=== PATIENT | female | born 1975 | race Two or more races ===

== ENCOUNTER 2018-02-19 19:03 | Emergency (ER) | payer MEDICAID, OTHER ==
[~2018-02-19] VITALS: Ht 154.9 cm; Wt 62.4 kg
[2018-02-19 19:06] VITALS: BP 140/75
[2018-02-19] MEDS ORDERED: PRENATAL VITAMINS (19:11)
[2018-02-19] MEDS ORDERED: CYCLOBENZAPRINE 10 MG TABLET ONE (19:45)
[2018-02-19] MEDS ORDERED: ACETAMINOPHEN 500 MG TABLET ONE (19:45)
[2018-02-19] MEDS ORDERED: ACETAMINOPHEN 500 MG TABLET PO ONE (20:00)
[2018-02-19] MEDS ORDERED: CYCLOBENZAPRINE 10 MG TABLET PO ONE (20:00)
== END 2018-02-19 20:23 | disposition home or self-care (01) ==
LOC: ED 20:00
DX: O26.892 Other specified pregnancy related conditions, second trimester (principal); Z3A.16 16 weeks gestation of pregnancy; S29.012A Strain of muscle and tendon of back wall of thorax, initial encounter; V49.49XA Driver injured in collision with other motor vehicles in traffic accident, initial encounter; Y93.89 Activity, other specified; Y92.410 Unspecified street and highway as the place of occurrence of the external cause; Y99.8 Other external cause status
CPT/HCPCS: 99283